=== PATIENT | female | born 1950 | race Asian ===

== ENCOUNTER 2018-02-27 17:03 | Emergency (ER) | payer MEDICARE ==
[~2018-02-27] VITALS: Ht 160 cm; Wt 49.9 kg
[2018-02-27 17:13] VITALS: BP 153/87
[2018-02-27] MEDS ORDERED: Tetracaine 0.5% Opth 4ml Soln BOTH EYES ONE (17:15)
[2018-02-27] MEDS ORDERED: Tobramycin 0.3% Opth Oint 3.5gm BOTH EYES ONE (17:15)
[2018-02-27] MEDS ORDERED: Bacitracin Opth Oint BOTH EYES ONE (17:30)
[2018-02-27] MEDS ORDERED: Morgan Lens TOPIC ONE (17:30)
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
[2018-02-27] MEDS ORDERED: Acetaminophen 500mg (ES) tab ORAL ONE (19:00)
[2018-02-27] MEDS ORDERED: ACETAMINOPHEN500 M5 PO (19:11)
[2018-02-27 20:00] VITALS: BP 0/0
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
== END 2018-02-27 20:00 | disposition home or self-care (01) ==
LOC: EMR 17:40
DX: S00.83XA Contusion of other part of head, initial encounter (principal); T65.893A Toxic effect of other specified substances, assault, initial encounter; Y04.0XXA Assault by unarmed brawl or fight, initial encounter; Y93.89 Activity, other specified; Y92.59 Other trade areas as the place of occurrence of the external cause
CPT/HCPCS: 70450; 70486; 99284